=== PATIENT | female | born 1960 | race Caucasian/White ===

== ENCOUNTER 2016-06-29 13:21 | Outpatient (CLI) | payer OTHER ==
[~2016-06-29 13:21] MED LIST: ACETAMINOPHEN; ACYCLOVIR200 MG PO; AMITRIPTYLINE H25 MG PO; BUTALBITAL; CAFFEINE; CODEINE; CREON6000 UNIT PO; CYMBALTA60 MG PO; DOXYCYCLINE100 MG PO; IMURAN50 MG PO; LAMICTAL100 MG PO; LISINOPRIL10 MG PO; METFORMIN HCL500 MG PO; PRAVASTATIN SOD20 MG; PRILOSEC20 MG; VITAMIN D-31000 UNIT PO
--- NOTE | 2016-06-29 14:13 | DIAGNOSTIC IMAGING REPORT ---
PROCEDURE: US KIDNEY/RENAL COMPLETE INDICATION: URINARY HESITANCY, PROTEINURIA TECHNIQUE: Transabdominal scans of the kidneys with calculation of resistive indices. Prevoid and postvoid bladder volumes were obtained. COMPARISON: CT abdomen/pelvis 03/28/2012 FINDINGS: RIGHT: Kidney measures 10.9 x 5.4 x 5.1 cm. Cortex measures 1 cm. No calculi or hydronephrosis. Resistive indices measure 0.59 or less. LEFT: Measures 10.1 x 5.2 x 5.5 cm. Cortex measures 1.3 cm. No calculi or hydronephrosis. Normal resistive indices measure 0.64 or less. BLADDER: Bilateral ureteral jets visualized. Bladder is unremarkable. Prevoid bladder volume 62 ml, postvoid volume 1 ml. IMPRESSION: 1. Normal renal ultrasound
== END 2016-06-29 23:00 ==
LOC: US SRH 13:21
DX: R39.11 Hesitancy of micturition (principal); R80.9 Proteinuria, unspecified